=== PATIENT | male | born 1970 | race Caucasian/White ===

== ENCOUNTER 2019-10-08 07:58 | Emergency (ER) | payer BC ==
[~2019-10-08] VITALS: Ht 177.8 cm; Wt 61.4 kg
[2019-10-08 08:04] VITALS: BP 138/87; Ht 177.8 cm; Wt 61.4 kg
[2019-10-08] MEDS ORDERED: ULTRAM50 MG PO (08:09)
[2019-10-08 08:43] LABS: BASOPHILS 0.4 % (0-2); EOSINOPHILS 3.6 % (0-7); HEMATOCRIT 44.1 % (42.0-54.0); HEMOGLOBIN 15.4 g/dL (13.5-17.5); IMMATURE GRANULOCYTES 0.2 % (0-5); LYMPHOCYTES 36.2 % (15-50); MCH 29.5 pg (26.0-34.0); MCHC 34.9 g/dL (31.0-37.0); MCV 84.5 fL (80.0-100.0); MEAN PLATELET VOLUME 9.6 fL (7.4-10.4); MONOCYTES 9.4 % (2-11); NEUTROPHILS 50.2 % (40-80); PLATELET COUNT 220 10x3/uL (130-400); RBC 5.22 10x6/uL (4.20-6.10); RDW 12.1 % (11.5-14.5); WBC 5.6 10x3/uL (4.8-10.8)
[2019-10-08 08:55] LABS: CALC OSMOLALITY 282 mosm/kg (275-300); CALCIUM 8.9 mg/dL (8.5-10.1); CARBON DIOXIDE 28.5 mmol/L (21.0-32.0); CHLORIDE - SERUM 103 mmol/L (98-107); CREATININE - SERUM 1.1 mg/dL (0.6-1.3); GLUCOSE 148 mg/dL (74-106); POTASSIUM - SERUM 3.9 mmol/L (3.5-5.1); SODIUM 140 mmol/L (136-145); UREA NITROGEN 16 mg/dL (7-18); eGFR NON AFRICAN AMERICAN 75 mL/min (90-120)
[2019-10-08 09:10] LABS: ALBUMIN 3.7 g/dL (3.4-5.0); ALKALINE PHOSPHATASE 82 U/L (46-116); ALT (SGPT) 23 U/L (10-68); PROTEIN - SERUM 7.1 g/dL (6.4-8.2)
[2019-10-08] MEDS ORDERED: FLOMAX0.4 MG PO (11:06)
[2019-10-08] MEDS ORDERED: HYDROCODON-ACE1 EAC2 PO (11:06)
== END 2019-10-08 19:00 | disposition home or self-care (01) ==
LOC: D.ER 07:58
PROVIDERS: Family Medicine
DX: N20.0 Calculus of kidney (principal)